=== PATIENT | female | born 1990 | race African-American/Black ===

== ENCOUNTER 2017-08-13 11:23 | Emergency (ER) | payer MEDICAID | END 2017-08-13 12:30 | disposition left against medical advice (07) | LOC: D.ER 11:23 | DX: Z20.2 Contact with and (suspected) exposure to infections with a predominantly sexual mode of transmission (principal) ==

== ENCOUNTER 2017-08-16 12:41 | Emergency (ER) | payer MEDICAID ==
[2017-08-16 15:24] LABS: AMORPHOUS SEDIMENT <1+ /lpf (NONE SEEN); APPEARANCE HAZY (CLEAR); BACTERIA FEW /hpf (NONE SEEN); BILIRUBIN NEGATIVE (NEGATIVE); COLOR YELLOW (YELLOW); EPITHELIAL CELLS OCC /hpf (0-5); GLUCOSE NEGATIVE (NEGATIVE); KETONE NEGATIVE (NEGATIVE); NITRITE NEGATIVE (NEGATIVE); PROTEIN NEGATIVE (NEGATIVE); RED CELLS - URINE 0-5 /hpf (0-5); UROBILINOGEN NORMAL (NORMAL); WHITE CELLS - URINE OCC /hpf (0-5)
== END 2017-08-16 14:30 | disposition home or self-care (01) ==
LOC: D.ER 12:41
PROVIDERS: Physician Assistant
DX: N76.0 Acute vaginitis (principal)

== ENCOUNTER 2018-09-07 15:21 | Emergency (ER) | payer MEDICAID ==
[~2018-09-07] VITALS: Ht 165.1 cm; Wt 71.4 kg
[2018-09-07 15:22] VITALS: Ht 165.1 cm; Wt 71.4 kg
[2018-09-07 16:12] LABS: BASOPHILS 0.4 % (0-2); EOSINOPHILS 1.4 % (0-7); HEMATOCRIT 37.8 % (36.0-48.0); HEMOGLOBIN 12.5 g/dL (12-16); IMMATURE GRANULOCYTES 0.1 % (0-5); LYMPHOCYTES 33.5 % (15-50); MCH 30.1 pg (26.0-34.0); MCHC 33.1 g/dL (31.0-37.0); MCV 91.1 fL (80.0-100.0); MEAN PLATELET VOLUME 10.7 fL (7.4-10.4); MONOCYTES 13.4 % (2-11); NEUTROPHILS 51.2 % (40-80); PLATELET COUNT 251 10x3/uL (130-400); RBC 4.15 10x6/uL (4.00-5.40); RDW 14.3 % (11.5-14.5); WBC 8.4 10x3/uL (4.8-10.8)
[2018-09-07 16:27] LABS: COLOR YELLOW (YELLOW)
[2018-09-07 16:28] LABS: APPEARANCE CLEAR (CLEAR); BILIRUBIN NEGATIVE (NEGATIVE); GLUCOSE NEGATIVE (NEGATIVE); KETONE NEGATIVE (NEGATIVE); NITRITE NEGATIVE (NEGATIVE); PROTEIN TRACE mg/dL (NEGATIVE); UROBILINOGEN NORMAL (NORMAL)
[2018-09-07 16:32] LABS: BACTERIA FEW /hpf (NONE SEEN); EPITHELIAL CELLS 0-5 /hpf (0-5); HCG URINE NEGATIVE (NEGATIVE); RED CELLS - URINE 0-5 /hpf (0-5); WHITE CELLS - URINE 0-5 /hpf (0-5)
[2018-09-07 16:44] LABS: ALBUMIN 3.5 g/dL (3.4-5.0); ANION GAP 14.6 mmol/L (8-16); BILIRUBIN - TOTAL 0.28 mg/dL (0.2-1.3); CALCIUM 8.5 mg/dL (8.5-10.1); CARBON DIOXIDE 25.2 mmol/L (21.0-32.0); CREATININE - SERUM 1.2 mg/dL (0.6-1.3); POTASSIUM - SERUM 3.8 mmol/L (3.5-5.1); PROTEIN - SERUM 7.6 g/dL (6.4-8.2)
[2018-09-07] MEDS ORDERED: OMEPRAZOLE40 MG PO (18:38)
[2018-09-07] MEDS ORDERED: VOLTAREN75 MG PO (18:38)
[2018-09-07] MEDS ORDERED: ZOFRAN ODT4 MG/UDTAB PO (18:38)
[2018-09-07 19:59] VITALS: BP 141/107
== END 2018-09-07 19:59 | disposition home or self-care (01) ==
LOC: D.ER 15:21
PROVIDERS: Emergency Medicine
DX: K29.70 Gastritis, unspecified, without bleeding (principal); M54.9 Dorsalgia, unspecified; F17.200 Nicotine dependence, unspecified, uncomplicated

== ENCOUNTER 2019-11-08 06:12 | Emergency (ER) | payer MEDICAID ==
[~2019-11-08] VITALS: Ht 165.1 cm; Wt 86.4 kg
[~2019-11-08 06:12] MED LIST: OMEPRAZOLE40 MG PO; VOLTAREN75 MG PO; ZOFRAN ODT4 MG/UDTAB PO
[2019-11-08 06:28] VITALS: Ht 165.1 cm; Wt 86.4 kg
[2019-11-08 07:19] VITALS: BP 132/78
== END 2019-11-08 07:19 | disposition home or self-care (01) ==
LOC: D.ER 06:12
DX: J06.9 Acute upper respiratory infection, unspecified (principal); Z72.0 Tobacco use; R52 Pain, unspecified

== ENCOUNTER 2019-11-25 09:45 | Emergency (ER) | payer MEDICAID ==
[~2019-11-25] VITALS: Ht 165.1 cm; Wt 81.8 kg
[2019-11-25 09:50] VITALS: BP 149/116; Ht 165.1 cm; Wt 81.8 kg
[2019-11-25] MEDS ORDERED: ATARAX 25 MG TA25 MG PO (10:25)
[2019-11-25] MEDS ORDERED: PERMETHRIN60 GM TOPICAL (10:25)
== END 2019-11-25 10:32 | disposition home or self-care (01) ==
LOC: D.ER 09:45
DX: B86 Scabies (principal)

== ENCOUNTER 2019-12-13 12:57 | Emergency (ER) | payer MEDICAID ==
[~2019-12-13 12:57] MED LIST changes: +ATARAX 25 MG TA25 MG PO; +PERMETHRIN60 GM TOPICAL
[2019-12-13 13:03] VITALS: Ht 165.1 cm
[2019-12-13] MEDS ORDERED: BLEPH-105 ML EACH EYE (13:43)
[2019-12-13] MEDS ORDERED: PERMETHRIN60 GM TOPICAL (13:43)
[2019-12-13] MEDS ORDERED: ATARAX 25 MG TA25 MG PO (13:43)
[2019-12-13 13:47] VITALS: BP 146/78
== END 2019-12-13 13:47 | disposition home or self-care (01) ==
LOC: D.ER 12:57
DX: B86 Scabies (principal); M41.9 Scoliosis, unspecified

== ENCOUNTER 2020-01-30 09:53 | Emergency (ER) | payer MEDICAID ==
[~2020-01-30] VITALS: Ht 165.1 cm; Wt 92.3 kg
[~2020-01-30 09:53] MED LIST changes: +BLEPH-105 ML EACH EYE
[2020-01-30 10:16] VITALS: Ht 165.1 cm; Wt 92.3 kg
[2020-01-30] MEDS ORDERED: PERMETHRIN60 GM TOPICAL (10:46)
[2020-01-30] MEDS ORDERED: HYDROXYZINE HCL50 MG PO (10:46)
[2020-01-30 10:53] VITALS: BP 158/89
== END 2020-01-30 10:54 | disposition home or self-care (01) ==
LOC: D.ER 09:53
DX: B88.8 Other specified infestations (principal); L29.9 Pruritus, unspecified

== ENCOUNTER 2020-02-19 07:40 | Emergency (ER) | payer MEDICAID ==
[~2020-02-19] VITALS: Ht 165.1 cm; Wt 92.3 kg
[~2020-02-19 07:40] MED LIST changes: +HYDROXYZINE HCL50 MG PO
[2020-02-19 07:50] VITALS: Ht 165.1 cm; Wt 92.3 kg
[2020-02-19] MEDS ORDERED: PERMETHRIN60 GM TOPICAL (08:02)
[2020-02-19 08:07] VITALS: BP 152/98
== END 2020-02-19 08:07 | disposition home or self-care (01) ==
LOC: D.ER 07:40
DX: B86 Scabies (principal)

== ENCOUNTER 2020-11-04 17:24 | Emergency (ER) | payer MEDICAID ==
[~2020-11-04] VITALS: Ht 165.1 cm; Wt 84.1 kg
[2020-11-04 17:31] VITALS: Ht 165.1 cm; Wt 84.1 kg
[2020-11-04 17:51] LABS: BASOPHILS 0.3 % (0-2); EOSINOPHILS 1.4 % (0-7); HEMATOCRIT 36.9 % (36.0-48.0); HEMOGLOBIN 12.1 g/dL (12-16); IMMATURE GRANULOCYTES 0.2 % (0-5); LYMPHOCYTE ABS# 2.43 10x3/uL (1.18-3.74); LYMPHOCYTES 38.9 % (15-50); MCH 28.7 pg (26.0-34.0); MCHC 32.8 g/dL (31.0-37.0); MCV 87.4 fL (80.0-100.0); MEAN PLATELET VOLUME 9.5 fL (7.4-10.4); NEUTROPHIL ABS# 2.89 10x3/uL (1.56-6.13); NEUTROPHILS 46.2 % (40-80); PLATELET COUNT 287 10x3/uL (130-400); RBC 4.22 10x6/uL (4.00-5.40); RDW 15.1 % (11.5-14.5); WBC 6.3 10x3/uL (4.8-10.8)
[2020-11-04 17:58] LABS: CALC OSMOLALITY 273 mosm/kg (275-300); CALCIUM 9.6 mg/dL (8.5-10.1); CARBON DIOXIDE 27.6 mmol/L (21.0-32.0); CHLORIDE - SERUM 102 mmol/L (98-107); CREATININE - SERUM 0.9 mg/dL (0.6-1.3); GLUCOSE 99 mg/dL (74-106); POTASSIUM - SERUM 3.4 mmol/L (3.5-5.1); SODIUM 136 mmol/L (136-145); UREA NITROGEN 17 mg/dL (7-18); eGFR NON AFRICAN AMERICAN 77 mL/min (90-120)
[2020-11-04 18:06] LABS: ALBUMIN 4.1 g/dL (3.4-5.0); ALKALINE PHOSPHATASE 96 U/L (30-120); ALT (SGPT) 23 U/L (10-68); AMYLASE - SERUM 70 U/L (25-115); BILIRUBIN - TOTAL 0.37 mg/dL (0.2-1.3); LIPASE 132 U/L (73-393); PROTEIN - SERUM 8.2 g/dL (6.4-8.2)
[2020-11-04 18:07] LABS: TROPONIN-I < 0.017 ng/mL (0.000-0.060)
[2020-11-04 18:40] LABS: BILIRUBIN NEGATIVE (NEGATIVE); KETONE SMALL mg/dL (NEGATIVE); NITRITE NEGATIVE (NEGATIVE); UROBILINOGEN NORMAL mg/dL (< 2)
[2020-11-04 19:12] LABS: UDS - AMPHET POSITIVE QUAL (NEGATIVE); UDS - BARB NEGATIVE QUAL (NEGATIVE); UDS - BENZO NEGATIVE QUAL (NEGATIVE); UDS - COCAINE POSITIVE QUAL (NEGATIVE); UDS - OPIATE NEGATIVE QUAL (NEGATIVE); UDS - PCP POSITIVE QUAL (NEGATIVE); UDS - THC POSITIVE QUAL (NEGATIVE)
[2020-11-04 19:43] LABS: HCG URINE NEGATIVE (NEGATIVE)
[2020-11-04] MEDS ORDERED: PROTONIX20 MG PO (20:48)
[2020-11-04 20:59] VITALS: BP 152/105
== END 2020-11-04 21:03 | disposition home or self-care (01) ==
LOC: D.ER 17:24
PROVIDERS: Emergency Medicine
DX: K29.70 Gastritis, unspecified, without bleeding (principal); F19.10 Other psychoactive substance abuse, uncomplicated; K21.9 Gastro-esophageal reflux disease without esophagitis